=== PATIENT | male | born 1975 | race Caucasian/White ===

== ENCOUNTER 2016-08-25 08:55 | Outpatient (CLI) | payer OTHER ==
--- NOTE | 2016-08-25 19:54 | MRI Report ---
EXAM: LEFT KNEE MRI WITHOUT CONTRAST EXAM DATE: 08/25/2016 09:38 AM. CLINICAL HISTORY: Medial meniscus tear in 1993. Re-injured left knee 1 month ago on a trampoline. Med ial joint line pain. COMPARISON: None. TECHNIQUE: Multiplanar, multisequence T1-weighted and fluid-sensitive sequences of the knee without c ontrast. Other: None. FINDINGS: Bones: There is subchondral edema in the anterolateral aspect of the lateral tibial condyle. Articular Cartilage: Unremarkable. Medial Meniscus: There is a horizontal tear of the body and posterior horn. Lateral Meniscus: There is a complex tear of the lateral meniscus extending from the anterior horn, t hrough the body into the posterior horn. Fragments are laterally extruded into the lateral recess. Th ere is a radial component anteriorly. Cruciate Ligaments: The anterior and posterior cruciate ligaments are intact. Collateral Ligaments: The medial collateral and lateral collateral ligamentous structures are intact. Tendons: The quadriceps, patellar, semimembranosus, and popliteus tendons are unremarkable. Musculature: No edema or fatty atrophy. Other: There is a moderate-sized joint effusion. No popliteal cyst. No loose bodies. The medial and lateral retinacula are intact. The subcutaneous tissues and fat pads are unremarkable. IMPRESSION: 1. Horizontal tear of the body and posterior horn. 2. Complex tear of the lateral meniscus extending from the anterior horn into the posterior horn with lateral extrusion of the body. 3. Edema of the anterior aspect of the lateral tibial condyle, underlying the radial component of the lateral meniscal tear. 4. Moderate-sized joint effusion. [facility] MUSCULOSKELETAL RADIOLOGY SECTION Referring Provider Line: [phone] SITE ID: [id number]
== END 2016-08-25 08:56 | disposition home or self-care (01) ==
LOC: DI 08:55
PROVIDERS: ATTEND General Practice
DX: S83.242A Other tear of medial meniscus, current injury, left knee, initial encounter (principal); S83.282A Other tear of lateral meniscus, current injury, left knee, initial encounter; R60.0 Localized edema

== ENCOUNTER 2016-09-26 07:31 | Day surgery (SDC) | payer OTHER ==
[2016-09-26] MEDS ORDERED: ACETAMINOPHEN 1,000 MG/100 ML 100 ML IV ONE (07:33)
[2016-09-26] MEDS ORDERED: ceFAZolin 2 GM/50 ML 0 ML IV ONE (07:33)
[2016-09-26] MEDS ORDERED: CLINDAMYCIN 600 MG/50 ML 50 ML IV ONE (07:33)
[2016-09-26] MEDS ORDERED: CELECOXIB 100 MG CAPSULE PO ONE (07:34)
[2016-09-26] MEDS ORDERED: LACTATED RINGERS 1,000 ML IV ONE ×2 (07:50→11:45)
[2016-09-26] MEDS ORDERED: ONDANSETRON 4 MG/2 ML VIAL IVP ONE (08:00)
[2016-09-26] MEDS ORDERED: LIDOCAINE-MPF 2% 5 ML VIAL IM ONE (08:00)
[2016-09-26] MEDS ORDERED: fentaNYL 100 MCG/2 ML VIAL IVP ONE (08:00)
[2016-09-26] MEDS ORDERED: MIDAZOLAM 2 MG/2 ML VIAL IVP ONE (08:00)
[2016-09-26] MEDS ORDERED: PROPOFOL 200 MG/20 ML VIAL IVP ONE (08:00)
[2016-09-26] MEDS ORDERED: DEXAMETHASONE 4 MG/ML VIAL IVP ONE (08:00)
[2016-09-26] MEDS ORDERED: MORPHINE PF 5 MG/10 ML AMP SUBQ ONE ×2 (10:07→11:21)
[2016-09-26] MEDS ORDERED: BUPIVACAINE 0.5% PF 10 ML VIAL SUBQ ONE (10:07)
[2016-09-26] MEDS ORDERED: ROPIVACAINE 0.2% PF 20 ML AMPULE SUBQ ONE (10:08)
[2016-09-26] MEDS: HYDROmorphone 1 MG/ML SYRINGE ONE ×2 (11:37→11:45)
[2016-09-26 12:52] VITALS: BP 120/68
--- NOTE | 2016-09-29 07:50 | OPERATIVE REPORT ---
DATE OF SURGERY: 09/26/2016 00:00:00 ID#: [id number] PREOPERATIVE DIAGNOSIS: Left knee medial and lateral meniscus tears. OPERATIVE DIAGNOSIS: Left knee medial and lateral meniscus tears and loose body. OPERATIVE PROCEDURES PERFORMED 1. Left knee arthroscopy. 2. Arthroscopic removal of loose body. 3. Arthroscopic medial meniscus debridement. 4. Arthroscopic lateral meniscus debridement. OPERATIVE SURGEON: Commander Mele Bynum, [employer] SURGERY TEACHER SURGEON: Lieutenant Commander Jenn Villarreal, Medical [facility], N ANESTHESIA PROVIDER: Mavis Moore CRNA ANESTHESIA TECHNIQUE: General anesthesia via LMA with local anesthesia at the incision site. CIRCULATING RN: Naga Nunez RN SOFTWARE ENGINEER INTERN: Ms. Karen Faulkner; and Ms. Hortencia Arriaza START TIME: 1008 hours. END TIME: 1114 hours. INJECTED SUBSTANCES INCLUDE: Marcaine 0.5% plain at the portal sites prior to incision. Additional injected substances include Duramorph, morphine 10 mg with ropivacaine 0.2% injected into the knee after closure of portal sites for postoperative pain control, a total of 5 mL of the ropivacaine. INTRAVENOUS FLUIDS: 900 mL Lactated Ringer's. PREOPERATIVE ANTIBIOTICS: Cleocin 600 mg for a PENICILLIN ALLERGY. ESTIMATED BLOOD LOSS: 5 mL. PREOPERATIVE PREP: Hibiclens followed by ChloraPrep applied to the exposed operative skin after draping. Patient did have CARMINA hose and foot pump in place on the right lower extremity; foot pump was functioning prior to induction of anesthesia. TOURNIQUET TIME: None. COMPLICATIONS: None. 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 Mechanical symptoms worse with squatting, with clinical exam and imaging studies consistent with both medial and lateral meniscus tears. Patient was counseled, as far as the findings and options for operative versus nonoperative management, including the risks, benefits, alternatives, and expectations to both operative and nonoperative management; he preferred to have surgery sooner than later due to upcoming Chief Warrant Officer commissioning program that he will need to attend. He received command authorization for surgery. On the day of surgery, he identified the operative site to be his left knee; it was initialed by the operative surgeon. He had removal of hair with clippers performed. He was then taken back to the operating room and placed in the supine position and underwent general anesthesia via LMA. After adequate anesthetic control, patient's bony prominences were well padded. He had a tourniquet applied to the left upper thigh. The left lower extremity underwent examination under anesthesia, revealing full passive range of motion, stable anterior and posterior drawer, stable Rj, negative pivot shift or glide, stable varus and valgus stress at 0 and 30 degrees. Following this, the patient underwent Hibiclens prep and standard sterile draping, followed by a surgical pause to confirm the proper patient, procedure, operative site, position, prophylactic antibiotics, and surgical initials, along with surgical instrumentation in accordance with the [place] Protocol Procedure Verification. Following this, ChloraPrep was applied to the exposed operative skin and allowed to dry for 3 minutes. His bony landmarks were outlined with a skin marker. The surgery began with injection of the portal sites with Marcaine plain, followed by a stab incision over the anterolateral knee and insertion of the arthroscope into the medial compartment due to soft tissue blocking at the patellofemoral articulation. The medial compartment immediately revealed what appeared to be a bucket-handle medial meniscus tear. Under direct visualization , a spinal needle was inserted to establish location of the anteromedial portal. A stab incision was then made, followed by a probe. Probing the medial compartment and medial meniscus revealed the complex bucket handle medial meniscus tear that did not appear repairable. Ligamentum and partial fat pad resection was performed in order to enter the femoral notch. The ACL was probed and visualized and found to be stable without signs of insufficiency. The knee was placed into a figure-4 position in order to enter the lateral compartment. Probing the posterolateral meniscus revealed a normal-appearing popliteal tendon and a normal-appearing posterior horn of the lateral meniscus; however, the most lateral aspect of the lateral meniscus and anterior lateral meniscus shows signs of a tear that was flipped and scarred down, as well as a parrot beak pattern anteriorly. Further synovial resection was performed in order to enter the patellofemoral articulation, which revealed soft tissue and plica impingement medially; this underwent resection with the sucker shaver and SERFAS wand for hemostasis. The patellofemoral articulation medial, central, and lateral patellar chondral facets were normal. Tracking appeared normal. Attention was then focused back to the medial compartment, where medial meniscus debridement was performed using the Denia set and sucker shaver to a stable rim, as well as a loose body removal. The meniscus was probed and found to have been debrided back to a stable rim, leaving a meniscus-deficient medial knee with only a rim of meniscal tissue remaining. Attention was then focused back to the lateral compartment under the figure-4 position, where using the Denia set and sucker shaver the lateral meniscus tears were debrided back to a stable rim. The arthroscopic instruments were then removed from the patient's knee, and fluid was allowed to extravasate out. Arthroscopic photos were taken throughout the case. The portal sites were then closed with 3-0 Monocryl. The knee was then injected with the ropivacaine and Duramorph. The portal sites were then covered with Mastisol, Steri-Strips, Xeroform, sterile plain gauze, sterile Webril, and WANDA bandage from mid-foot to mid-thigh, followed by a cold therapy cuff. The patient was extubated in the operating room and taken to the recovery room in a stable condition. He tolerated the procedure well. His was met in the surgical waiting room and advised of the intraoperative findings, procedure performed, and postoperative instructions. This patient may benefit from medial meniscus transplantation in the future, if he remains to be symptomatic. Edited and electronically signed: CDR Mele Bynum [facility], USN [id number] JOB #: [id number] EXT JOB #:[id number] FRANCIS
== END 2016-09-26 07:32 | disposition home or self-care (01) ==
LOC: SDS 07:31
PROVIDERS: ATTEND Orthopaedic Surgery
PROC: 0SCD4ZZ Extirpation of Matter from Left Knee Joint, Percutaneous Endoscopic Approach (ICD-10-PCS; 2016-09-26)
PROC: 0SBD4ZZ Excision of Left Knee Joint, Percutaneous Endoscopic Approach (ICD-10-PCS; principal; 2016-09-26 09:15)
DX: S83.242A Other tear of medial meniscus, current injury, left knee, initial encounter (principal); S83.282A Other tear of lateral meniscus, current injury, left knee, initial encounter; M23.42 Loose body in knee, left knee; X58.XXXA Exposure to other specified factors, initial encounter; Y93.44 Activity, trampolining; M21.161 Varus deformity, not elsewhere classified, right knee; M21.162 Varus deformity, not elsewhere classified, left knee; I10 Essential (primary) hypertension; G47.33 Obstructive sleep apnea (adult) (pediatric)
CPT/HCPCS: 29880; A9270; J0131; J1170; J7120

== ENCOUNTER 2021-04-17 08:39 | Outpatient (CLI) | payer OTHER ==
[2021-04-17 09:37] VITALS: BP 130/97
--- NOTE | 2021-04-17 09:37 | SLEEP CARE CONSULTATION ---
Information from patient questionnaire entered by Lorenzo Campoverde MA. I have reviewed and concur with the information entered by Lorenzo Campoverde MA. This document represents the service I personally performed and the decisions made by , Sari Christensen ARNP. History of Present Illness Service Date and Time: 04/17/2021 0839 Reason for Visit: New patient (ON CPAP NOW, ONSET 03/2011), Previously diagnosed sleep apnea, sleep apnea on CPAP therapy, Other (ONSET 2011, ON CPAP) Chief Complaint: reports: Unrefreshed sleep, Fatigue, Frequent awakenings at night Date of Onset: 10 MONTHS AGO Usual bedtime: 1030 PM Time it takes to fall asleep: 1 HOUR Snores at night: Yes Observed to quit breathing while asleep: Yes Sleeps alone due to snoring: No Number of times waking at night: 3-4 TIMES Reasons for waking at night: reports: Other (JUST WAKE UP) Toss, Turn, or Twitch while sleeping: Yes Recalls having dreams: No Usually gets out of bed at: 0630 Feels refreshed in the morning: No Morning headache: No Sleepy or fatigued during the day: Yes Ever fallen asleep while driving: No Takes day naps: Yes Dreams during day naps: No Prior sleep studies: Yes Year and Where: 2015 [place] [facility] Additional HPI information: KARUNA AGUILAR was previously diagnosed to have moderate, AHI 24.0, obstructive sleep apnea-hypopnea syndrome and come in today to establish care for CPAP therapy. - Parasomnia Symptoms Ever been unable to move upon waking from sleep: No Walks in sleep: No Talks in sleep: Yes Ever acted out dreams in sleep: No Ever felt weak in the knees when startled or emotional: No Bothered by creepy, crawly, restless sensations in legs: Yes Problems with memory or concentration: Yes CPAP Compliance Data - Data Reviewed with Patient Average duration of nightly device use: 6 hours 59 minutes Compliance rate %: 97 Current pressure setting (cmH2O): 7-11 (median 10.0, avg 10.8) Average residual AHI: 3.5 Central apnea: 0.3 Obstructive apnea: 1.9 Average large leak: 29.8 L/min Compliance data discussion: He has a [employer] that was set up in . He uses a nasal pillows mask. He has been using a DME out of [place] for his supplies, [employer]. He does have back up pillows but not headgear. He last changed it about a week ago. Subjective Missed days of use due to: reports: other (power outages) Patient concerns: reports: dry mouth, nose, throat (uses chin strap with improvement). denies: aerophagia, mask discomfort, air blowing in eyes, mask l eak noise, condensation in mask/hose, nasal congestion, epistaxis, other Observed to snore while using device: No Current pressure setting perceived as: comfortable On therapy, patient: reports: sleeping better, awakening more refreshed, being more awake and alert during the day, more rested overall. denies: drowsiness while driving Initial [place] Sleepiness Scale score: 8 (2021) Past Medical History Past Medical History: reports: Hypertension, Anxiety Social History The patient's occupation is a [employer]. Patient is and lives in [place]. Have you smoked in the past 12 months: No Alcohol use: Yes Alcohol amount and frequency: 5 X WEEKLY Caffeine use: Yes Caffeine amount and frequency: 1 -2 X DAILY Family History Family history of sleep disordered breathing: No Family Hx Sleep Apnea: Mother: Snoring, Father: Snoring, Sleep apnea - Untreated, Sibling: Snoring, Sleep apnea - Untreated Allergies and Home Medications Known drug allergies: Yes (PNC, PHENOBARBITOL) Drug allergies reviewed: Yes Home medication list reviewed: Yes Allergy and home medication list: Lisinopril Vitamins Fish oil Review of Systems Psychiatric: reports: anxiety Ear/Nose/Throat: reports: sinus problems, wisdom teeth removed. denies: tonsillectomy Endocrine: reports: sluggishness Musculoskeletal: reports: joint pain, neck pain, back pain Physical Exam Vital signs obtained and entered by: Azar CAMPOVERDE CMA [facility] Blood Pressure: 130/97 (RIGHT, PULSE 82) Heart Rate: 96 (HIT HURT LEG) O2 Saturation: 96 (WITH PAPER MASK) Height: 6 ft 2 in Weight: 240 lb (WITH UNIFORM AND BOOTS) Body Mass Index: 30.8 BMI Classification: Obese Heart: regular rate and rhythm Lungs: clear bilaterally Impression and Plan 1. Obstructive Sleep Apnea-Hypopnea Syndrome, moderate, with good treatment compliance and good apnea control. On CPAP therapy, the patient has better sleep quality and is more rested overall. Patient has been having more daily fatigue and will wake up about 3 every morning for the last 10 months. He stopped his trazodone that helped him sleep through the night because he thought it may be the cause of some heart palpitations. His palpitations have improved and he feels the nightly awakenings are also improving. After reviewing his therapy report, I think we can increase his pressure setting to reduce his AHI. The residual AHI was 3.5 which is in goal but may be more elevated than he needs. I will adjust his pressure to 8-12 cmH2O. Patient advised to contact me if pressure change is uncomfortable so that it can be adjusted. Goals for apnea control discussed. He voice understanding. Currently patients BMI is 30.8. Obesity increases the risk of apnea, CPAP pressure requirements and overall health risks especially cardiovascular and diabetes. Thus patient is advised to try to lose weight for their overall health and to reduce apneas. Patient's apnea severity and rationale for treatment to reduce apnea, improve sleep quality and reduce cardiovascular and cerebrovascular events was reviewed. I also reviewed the benefit of consistent device use of CPAP for hypertension and anxiety. * Change auto CPAP pressure to 8-12 cmH2O * Update supplies * Notify me if snoring with mask or feeling that the pressure is too much or too little * Attempt to lose weight * Call this office if any problems using CPAP * Return for follow up in 1 year, or sooner if concerns arise Counseling Topics: Spare mask, Weight loss health impact Visit Type: In Office Time Spent with Patient (minutes): 32 Provider Statement: I spent 100% of the Face to Face Visit with the patient with greater than 50% spent counseling the patient and coordination of care.
== END 2021-04-17 08:40 | disposition home or self-care (01) ==
LOC: SC 08:39
PROVIDERS: ATTEND Nurse Practitioner Family
DX: G47.33 Obstructive sleep apnea (adult) (pediatric) (principal); E66.9 Obesity, unspecified; Z68.30 Body mass index [BMI] 30.0-30.9, adult
CPT/HCPCS: 99203; 99212

== ENCOUNTER 2021-08-06 08:49 | Outpatient (CLI) | payer OTHER ==
[2021-08-06] MEDS ORDERED: GADOBUTROL 7.5 MMOL/7.5 ML VIAL ONE (09:05)
[2021-08-06] MEDS ORDERED: IOTHALAMATE MEGLUMINE 50 ML VIAL ONE (09:05)
[2021-08-06] MEDS ORDERED: LIDOCAINE-MPF 1% 10 ML AMP ONE (09:05)
[2021-08-06] MEDS ORDERED: GADOBUTROL 7.5 MMOL/7.5 ML VIAL IVP ONE (09:48)
[2021-08-06] MEDS ORDERED: IOTHALAMATE MEGLUMINE 50 ML VIAL IVP ONE (09:51)
[2021-08-06] MEDS ORDERED: LIDOCAINE-MPF 1% 10 ML AMP SUBQ ONE (09:52)
--- NOTE | 2021-08-06 11:13 | MRI Report ---
PROCEDURE: Arthrogram Shoulder LT INDICATIONS: PAIN IN LEFT SHOULDER CONTRAST: Dilute intra-articular gadolinium. TECHNIQUE: After the administration of 12 mL of dilute intra-articular Gadolinium contrast, oblique coronal T1 a nd T2 spin echo with fat saturation, oblique sagittal T1 spin echo with and without fat saturation, o blique sagittal T2 fast spin echo with fat saturation, axial T1 spin echo with fat saturation through the shoulder. COMPARISON: None. FINDINGS: Image quality: Excellent. Rotator cuff: There is moderate T2 signal elevation throughout the supraspinatus and infraspinatus te ndons at the humeral insertion sites extending the muscular tendinous junction, indicating tendinopat hy. Superimposed full-thickness tearing of the anterior supraspinatus tendon at the humeral insertion site measuring roughly 6 mm anteroposterior. Superimposed low-grade articular surface tearing of the mid and posterior supraspinatus tendon at the humeral insertion site extending the muscular tendinou s junction. Superimposed low-grade partial-thickness intrasubstance tearing of the anterior and mid i nfraspinatus tendon at the muscular tendinous junction. Low-grade partial-thickness intrasubstance te aring of the mid/superior subscapularis tendon at the humeral insertion site extending the muscular t endinous junction. No rotator cuff atrophy. Bones and bursae: No bone marrow contusions or fractures. Moderate acromioclavicular joint degenerat ion. The acromion demonstrates conventional anatomy, without an os acromiale. Capsule and soft tissues: The labrum and glenohumeral ligaments appear intact. The long head of the biceps tendon demonstrates normal location and morphology. The rotator interval appears normal, wit hout fibrosis. The coracohumeral ligament is of normal thickness. No intra-articular bodies. IMPRESSION: 1. Supraspinatus and infraspinatus tendinopathy. 2. Superimposed full-thickness tearing of the anterior supraspinatus. Superimposed low-grade tearing of the remainder of the supraspinatus as well as the infraspinatus and subscapularis. 2. Acromial clavicular joint osteoarthritis. Reviewed by: Liz Bhatia MD on 08/06/2021 11:11 AM PDT Approved by: Liz Bhatia MD on 08/06/2021 11:11 AM PDT Station ID: [id number]
--- NOTE | 2021-08-06 11:30 | XRAY Report ---
TECHNIQUE: PROCEDURE: Arthrogram Needle Placement INDICATIONS: PAIN IN LEFT SHOULDER FLUORO TIME: 0.2 minutes TECHNIQUE: The indications, alternatives, benefits, risks, and complications of the procedure were explained to the patient. Written informed consent was obtained and placed in the chart. The shoulder was examin ed fluoroscopically and a site for needle placement chosen for entry into the glenohumeral joint from an anterior approach. The skin was prepped and draped in the usual fashion, and 1% lidocaine infilt rated from skin down to joint capsule. A spinal needle was inserted into the glenohumeral joint, and a small amount of iodinated contrast media injected to confirm intra-articular placement of the need le tip. This was followed by approximately 12 ml of saline/gadolinium (20cc normal saline/0.2 gadoli nium) contrast solution. The needle was removed and a dressing was applied. The patient was given postprocedural instructions and sent to the MRI suite for imaging. FINDINGS: Fluoroscopic spot image demonstrates intra-articular location of injected iodinated contrast. IMPRESSION: Successful fluoroscopically guided administration of iodinated contrast solution into the shoulder [facility] for MR arthrogram. Reviewed by: Magan Rae MD on 08/06/2021 11:28 AM PDT Approved by: Magan Rae MD on 08/06/2021 11:28 AM PDT Station ID: [id number]
== END 2021-08-06 08:50 | disposition home or self-care (01) ==
LOC: DI 08:49
PROVIDERS: ATTEND Orthopaedic Surgery
DX: M75.122 Complete rotator cuff tear or rupture of left shoulder, not specified as traumatic (principal); M19.012 Primary osteoarthritis, left shoulder
CPT/HCPCS: 23350; 73222; 77002; A9585; Q9961

== ENCOUNTER 2023-04-27 08:19 | Emergency (ER) | payer OTHER ==
[2023-04-27 08:39] VITALS: BP 124/87; O2SAT 98
--- NOTE | 2023-04-27 09:11 | XRAY Report ---
PROCEDURE: Lumbar Spine 2-3V INDICATIONS: injury/back pain TECHNIQUE: 3 views of the lumbar spine were acquired. COMPARISON: None. FINDINGS: Bones: 5 [id number] vertebrae are present. There is normal bony alignment. No vertebral body compression fractures. No suspicious bony lesions. Soft tissues: Overlying bowel gas pattern is normal. No suspicious soft tissue calcifications. IMPRESSION: No acute fracture. No osseous lesion. If symptoms and/or clinical suspicion for patholog y continue, further assessment with repeat plain films, or advanced imaging (e.g., CT, MRI, or bone s can) is recommended for further assessment. Reviewed by: Liz Allen MD on 04/27/2023 9:10 AM [facility] Approved by: Liz Allen MD on 04/27/2023 9:10 AM [facility] Station ID: [id number]
[2023-04-27] MEDS: CYCLOBENZAPRINE 10 MG TABLET PO STA (09:27)
[2023-04-27] MEDS: KETOROLAC 60 MG/2 ML VIAL IM STA (09:27)
[2023-04-27] MEDS: LIDOCAINE PATCH 4% TOP STA (09:27)
--- NOTE | 2023-04-27 10:00 | ED Physician Documentation ---
PD HPI BACK PAIN - Stated complaint Stated Complaint: BACK PX - Chief complaint Chief Complaint: Back Pain - History obtained from History obtained from: Patient - Additional information Additional information: Patient is a 48-year-old male with no significant past medical history presenting for evaluation of low back pain. Patient states he started having right low back pain a few days ago after lifting weights. Today he was bending down and stood back up and reported a sudden intense pain on the left side that radiates into the left thigh. Does not take blood thinners. Denies falls. No bowel or bladder incontinence. No numbness or tingling or leg weakness. Has not tried anything for his pain previously. 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 No fevers. No chest pain or abdominal pain. Review of Systems Constitutional: denies: Fever Cardiac: denies: Chest pain / pressure Respiratory: denies: Dyspnea GI: denies: Abdominal Pain Musculoskeletal: reports: Back pain PD PAST MEDICAL HISTORY - Past Medical History Past Medical History: Yes Cardiovascular: Hypertension Respiratory: Sleep apnea, CPAP use Endocrine/Autoimmune: None GI: None : None Psych: None Musculoskeletal: Other Derm: None - Past Surgical History Past Surgical History: Yes Ortho: Arthroscopic surgery - Present Medications Home Medications: Ambulatory Orders Medication Instructions Recorded Confirmed Garlic 500 mg PO DAILY 09/25/16 09/26/16 Multivitamin [Multivitamins] 1 each PO DAILY 09/25/16 09/26/16 [place]-3/Dha/Epa/Fish Oil [Fish Oil 1 each PO DAILY 09/25/16 09/26/16 1,000 mg Softgel] Trazodone HCl 50 mg PO DAILY 09/25/16 09/26/16 lisinopriL [Lisinopril] 10 mg PO DAILY 09/25/16 09/26/16 Cyclobenzaprine [Flexeril] 10 mg PO TID PRN #20 tablet 04/27/23 Ibuprofen 600 mg PO Q6HR PRN #30 tab 04/27/23 Lidocaine Patch 5% [Lidoderm Patch] 1 patch TOP DAILY PRN #10 patch 04/27/23 - Allergies Allergies/Adverse Reactions: Allergies Allergy/AdvReac Type Severity Reaction Status Date / Time Penicillins Allergy Hives Verified 04/27/23 08:28 phenobarbital Allergy Hives Verified 04/27/23 08:28 - Social History Does the pt smoke?: No Smoking Status: Never smoker PD ED PE NORMAL - General General: Alert and oriented X 3, No acute distress, Well developed/nourished - HEENT HEENT: Atraumatic, Moist mucous membranes, Pharynx benign - Neck Neck: Supple, no meningeal sign - Cardiac Cardiac: RRR, Strong equal pulses - Respiratory Respiratory: No respiratory distress, Clear bilaterally - Abdomen Abdomen: Normal bowel sounds, Soft, Non tender, Non distended - Back Back: Other (Mild midline low lumbar tenderness to palpation, no step-off,) - Derm Derm: Normal color, No rash - Extremities Extremities: No deformity, No tenderness to palpate, No calf tenderness / cord - Neuro Neuro: Alert and oriented X 3, No motor deficit, No sensory deficit, Normal speech Results - Vitals Vitals: Vital Signs - 24 hr 04/27/23 08:25 Temperature 36.7 C Heart Rate 69 Respiratory 18 Rate Blood Pressure 124/87 H O2 Saturation 98 Oxygen O2 Source Room air PD Medical Decision Making - ED course Complexity details: reviewed results, d/w patient ED course: Patient is a 48-year-old male with low back pain after lifting weights a few days ago and then worsening today. Normal neuroexam. No bowel or bladder incontinence. No red flag signs or symptoms in regards to back pain to suggest epidural hematoma, cord compression. X-ray was obtained which I reviewed I see no fracture or dislocation. Patient was given a dose of Flexeril, lidocaine patch and IM Toradol with some improvement in his symptoms. He is able to ambulate here. Offered walker for additional support at home. Patient counseled on need for continued supportive care as well as need for close follow-up at [facility]. Patient advised on concerning symptoms to return for. Departure - Departure Disposition: 01 Home, Self Care Clinical Impression: Low back pain Condition: Stable Instructions: ED Neck Back Pain General Follow-Up: [facility] [Provider Group] Prescriptions: Ibuprofen 600 mg PO Q6HR PRN #30 tab PRN Reason: Pain 5-7 Cyclobenzaprine [Flexeril] 10 mg PO TID PRN #20 tablet PRN Reason: Spasms Lidocaine Patch 5% [Lidoderm Patch] 1 patch TOP DAILY PRN #10 patch PRN Reason: pain Comments: Your x-ray does not show any broken bones. I have sent prescriptions to help you with your pain to [facility] in [place]. I would recommend close follow- up with your primary care provider as you may need further evaluation or treatment such as physical therapy or an MRI of your back. Return to the ER with any worsening symptoms such as increased pain, leg weakness, difficulty in controlling bowel or bladder function or any other concerns. IMPRESSION: No acute fracture. No osseous lesion. If symptoms and/or clinical suspicion for pathology continue, further assessment with repeat plain films, or advanced imaging (e.g., CT, MRI, or bone scan) is recommended for further assessment. Discharge Date/Time: 04/27/23 10:40
== END 2023-04-27 10:40 | disposition home or self-care (01) ==
LOC: ED 08:19
DX: M54.50 Low back pain, unspecified (principal); X50.0XXA Overexertion from strenuous movement or load, initial encounter; Y93.B3 Activity, free weights; I10 Essential (primary) hypertension
CPT/HCPCS: 72100; 96372; 99283; 99284; A9270